=== PATIENT | male | born 1995 ===

== ENCOUNTER 2021-01-26 11:09 | Emergency (ER) | payer OTHER ==
[~2021-01-26] VITALS: Ht 170.2 cm; Wt 97.7 kg
[2021-01-26 11:14] VITALS: BP 115/73
--- NOTE | 2021-01-26 12:01 | NUR ---
ELECTRICIAN SHOP STATES THAT RESIDENTIAL AUTHORIZATION FOR PATIENT TO BE SEEN IS #[id number].
== END 2021-01-26 12:05 | disposition home or self-care (01) ==
LOC: ER 11:10 → EEVIPCON 11:10 → ER 12:05
DX: Z00.00 Encounter for general adult medical examination without abnormal findings (principal); R41.82 Altered mental status, unspecified; F17.210 Nicotine dependence, cigarettes, uncomplicated
CPT/HCPCS: 99283